=== PATIENT | female | born 1995 | race African-American/Black ===

== ENCOUNTER 2019-01-11 19:24 | Emergency (ER) | payer SELFPAY ==
[~2019-01-11] VITALS: Ht 170.2 cm; Wt 82.0 kg
[2019-01-11] MEDS ORDERED: METHYLPREDNISOLONE SOD SUCC 125 MG/2 ML VIAL IV ONE (22:45)
[2019-01-11] MEDS ORDERED: DIPHENHYDRAMINE 50MG/ML VIAL IV ONE (22:45)
[2019-01-11] MEDS ORDERED: KETOROLAC 30MG/ML VIAL IV ONE (23:30)
[2019-01-12] VITALS: BP 109/65
== END 2019-01-12 00:28 | disposition home or self-care (01) ==
LOC: ER 19:24
DX: T78.1XXA Other adverse food reactions, not elsewhere classified, initial encounter (principal); Z91.018 Allergy to other foods; X58.XXXA Exposure to other specified factors, initial encounter
CPT/HCPCS: 96374; 96375; 99283; J1200; J1885; J2930